=== PATIENT | female | born 1975 | race Caucasian/White ===

== ENCOUNTER 2016-11-13 11:29 | Outpatient (CLI) | payer OTHER | END 2016-11-13 11:30 | disposition home or self-care (01) | DX: M54.5 Low back pain (principal) ==

== ENCOUNTER 2017-04-20 14:46 | Outpatient (CLI) | payer OTHER ==
--- NOTE | 2017-04-20 16:11 | MRI Report ---
EXAM: MRI LUMBAR SPINE WITHOUT CONTRAST EXAM DATE: 04/20/2017 03:18 PM. CLINICAL HISTORY: LOWER BACK PAIN. COMPARISON: Lumbar radiograph 11/13/2016. TECHNIQUE: Multiplanar, multisequence T1-weighted and fluid-sensitive sequences of the lumbar spine f rom T12 to S1 without contrast. Other: None. FINDINGS: Spinal Cord: The conus terminates at T12-L1. No signal abnormality in the visualized spinal cord. Alignment: Normal. No scoliosis or spondylolisthesis. Bone Marrow: Five [id number] lumbar vertebral bodies are assumed. There is mild endplate degener ative change, Schmorl's node formation, mild loss of disk height and slight disk desiccation seen at T11-T12, T12-L1, L1-L2, and L2-L3. There is mild to moderate endplate degenerative change, mild to mo derate loss of disk, disk desiccation seen at L3-L4, L4-L5, and L5-S1. No acute fracture. No marrow replacing lesion. There is minimal endplate edema seen at L5-S1 likely d egenerative in nature. Disk Levels/Facets: T12-L1: Unremarkable. L1-L2: Unremarkable. L2-L3: Unremarkable. L3-L4: Small posterior disk bulge, ligamentum flavum thickening, arthritic facet disease, and promine nt dorsal epidural fat. Mild spinal canal stenosis. Minimal bilateral neuroforaminal narrowing. L4-L5: Small central disk protrusion with associated posterior fissure. Ligamenta flava thickening, a rthritic facet disease, prominent dorsal epidural fat. Mild spinal canal stenosis and effacement of t he lateral recesses. Minimal right and mild left neuroforaminal narrowing. L5-S1: Moderate central to right paracentral disk extrusion with associated posterior annular fissure and disk extending inferiorly behind the S1 vertebral body. The extruded disk fragment measures 10 x 13 x 7 mm (cc by TRV by AP). There is bilateral thoracic facet disease. There is effacement of later al recesses with mass effect on the traversing right S1 nerve root. Mild bilateral neural foraminal n arrowing. Musculature: Normal. No edema or fatty atrophy. Other: The visualized pelvic cavity is unremarkable. IMPRESSION: 1. Minimal to mild multilevel degenerative changes. L3-L4: Mild spinal canal stenosis. Minimal bilateral neuroforaminal narrowing. L4-L5: Mild spinal canal stenosis and effacement of the lateral recesses. Minimal right and mild left neuroforaminal narrowing. L5-S1: Moderate central to right paracentral disk extrusion with associated posterior annular fissure . Effacement of lateral recesses with mass effect on the traversing right S1 nerve root. Mild bilater al neural foraminal narrowing. Comment: The following findings are so common in adults without low back pain that while we report th eir presence, they must be interpreted with caution and in the context of the clinical situation. (Re jose Morgan et al, Spine 2001) Prevalence of findings in patients without low back pain: Disk degeneration (any evidence): 92% Disk desiccation/T2 signal loss: 83% Disk height loss: 56% Disk bulge: 64% Disk protrusion: 32% Annular tear/high intensity zone: 38% [facility] Referring Provider Line: [phone] SITE ID: [id number]
== END 2017-04-20 14:47 | disposition home or self-care (01) ==
LOC: DI 14:46
PROVIDERS: ATTEND Family Medicine
DX: M51.27 Other intervertebral disc displacement, lumbosacral region (principal); M51.36 Other intervertebral disc degeneration, lumbar region; M51.34 Other intervertebral disc degeneration, thoracic region; M51.26 Other intervertebral disc displacement, lumbar region; M47.896 Other spondylosis, lumbar region
CPT/HCPCS: 72148

== ENCOUNTER 2017-10-07 08:00 | Outpatient (CLI) | payer OTHER ==
[2017-10-08 13:16] LABS: BILIRUBIN,URINE NEGATIVE (NEGATIVE); GLUCOSE, URINE (UA) NEGATIVE (NEGATIVE); KETONES,URINE (UA) NEGATIVE (NEGATIVE); LEUKOCYTE ESTERASE, URINE NEGATIVE (NEGATIVE); NITRITE,URINE NEGATIVE (NEGATIVE); OCCULT BLOOD,URINE NEGATIVE (NEGATIVE); PROTEIN,URINE NEGATIVE (NEGATIVE); UROBILINOGEN,URINE 0.2 (NORMAL) E.U./dL (NORMAL)
[2017-10-08 13:21] LABS: BACTERIA,URINE Rare /HPF (None Seen); CLARITY,URINE CLEAR (CLEAR); RBC,URINE 0-5 /HPF (0-5); SQUAMOUS EPITHELIAL CELL,UR RARE Squamous (<= Few)
== END 2017-10-07 23:59 | disposition home or self-care (01) ==
LOC: LAB.R 08:00
PROVIDERS: ATTEND Nurse Practitioner Family
DX: R30.0 Dysuria (principal)
CPT/HCPCS: 81001; 87086

== ENCOUNTER 2017-10-20 08:00 | Outpatient (CLI) | payer OTHER | END 2017-10-20 08:01 | disposition home or self-care (01) | LOC: LAB.R 08:00 | PROVIDERS: ATTEND Nurse Practitioner Family | DX: R30.0 Dysuria (principal) | CPT/HCPCS: 87070 ==

== ENCOUNTER 2018-04-06 12:20 | Outpatient (CLI) | payer OTHER | END 2018-04-06 12:21 | disposition home or self-care (01) | LOC: LAB 12:20 | PROVIDERS: ATTEND Obstetrics & Gynecology | DX: N95.1 Menopausal and female climacteric states (principal); Z11.3 Encounter for screening for infections with a predominantly sexual mode of transmission | CPT/HCPCS: 36415; 83001 ==

== ENCOUNTER 2018-05-19 14:54 | Outpatient (CLI) | payer OTHER ==
--- NOTE | 2018-05-20 10:30 | Mammography Report ---
Reason: ENCNTR SCREEN MAMMOGRAM FOR MALIGNANT NEOPLASM OF Procedure Date: 05/19/2018 Accession Number: [id number] / [id number] Procedure: LIYAH - Screening Mammo Dig Bilat CPT Code: FULL RESULT: EXAM: Screening Mammo Dig Bilat DATE: 05/19/2018 3:45 PM CLINICAL HISTORY: Routine screening TECHNIQUE: Bilateral CC and MLO views were obtained. COMPARISON: 01/18/2016 and 12/03/2012 FINDINGS: The breast tissue is extremely dense. No significant interval change. No suspicious masses, clustered microcalcifications, or regions of architectural distortion are identified. IMPRESSION: Negative examination RECOMMENDATION: Routine annual screening unless otherwise clinically indicated. BIRADS CATEGORY 1: Negative STANDARD QUALIFYING STATEMENTS: 1. This examination was reviewed with the aid of Computer-Aided Detection (CAD). 2. A negative or benign imaging report should not delay biopsy if clinically suspicious findings are present. Consider surgical consultation if warrented. More than 5% of cancers are not identified by imaging. 3. Dense breasts may obscure an underlying neoplasm.
== END 2018-05-19 14:55 | disposition home or self-care (01) ==
LOC: DI 14:54
PROVIDERS: ATTEND Obstetrics & Gynecology
DX: Z12.31 Encounter for screening mammogram for malignant neoplasm of breast (principal)
CPT/HCPCS: 77067

== ENCOUNTER 2019-02-08 10:50 | Outpatient (CLI) | payer OTHER ==
[2019-02-08 17:38] LABS: BASOPHILS % (AUTO) 0.7 %; EOSINOPHILS # (AUTO) 0.1 10^3/uL (0.0-0.7); EOSINOPHILS % (AUTO) 1.6 %; HGB - HEMOGLOBIN 13.6 g/dL (12.0-16.0); LYMPHOCYTES # (AUTO) 2.4 10^3/uL (1.5-3.5); LYMPHOCYTES % (AUTO) 39.7 %; MEAN CORPUSCULAR HEMOGLOBIN 31.6 pg (27.0-31.0); MEAN CORPUSCULAR HGB CONC 32.9 g/dL (32.0-36.0); MEAN CORPUSCULAR VOLUME 96.3 fL (81.0-99.0); MEAN PLATELET VOLUME 11.1 fL (7.9-10.8); MONOCYTES # (AUTO) 0.5 10^3/uL (0.0-1.0); MONOCYTES % (AUTO) 7.4 %; NEUTROPHILS # (AUTO) 3.1 10^3/uL (1.5-6.6); NEUTROPHILS % (AUTO) 50.4 %; PLT - PLATELET COUNT 229 10^3/uL (130-450); RED CELL DISTRIBUTION WIDTH 11.9 % (12.0-15.0); WHITE BLOOD COUNT 6.1 x10^3/uL (4.8-10.8)
[2019-02-08 17:55] LABS: ALBUMIN 4.4 g/dL (3.2-5.5); ALBUMIN/GLOBULIN RATIO 1.4 (1.0-2.2); BILIRUBIN,TOTAL 0.8 mg/dL (0.2-1.0); CALCIUM 9.1 mg/dL (8.5-10.3); CREATININE 0.5 mg/dL (0.4-1.0); TOTAL PROTEIN 7.5 g/dL (6.7-8.2)
[2019-02-10 20:01] LABS: ANA SCREEN POSITIVE (NEGATIVE)
== END 2019-02-08 10:51 | disposition home or self-care (01) ==
LOC: LAB.S 10:50
PROVIDERS: ATTEND Registered Nurse
DX: Z00.00 Encounter for general adult medical examination without abnormal findings (principal); M54.5 Low back pain
CPT/HCPCS: 36415; 80053; 84443; 85025; 86038

== ENCOUNTER 2019-05-25 14:30 | Outpatient (CLI) | payer OTHER ==
--- NOTE | 2019-05-27 11:35 | Mammography Report ---
Reason: SCREENING MAMMO Procedure Date: 05/25/2019 Accession Number: [id number] / [id number] Procedure: LIYAH - Screening Mammo w/Fredi CPT Code: Final Report FULL RESULT: EXAM: Screening Mammo w/Fredi DATE: 05/25/2019 3:01 PM CLINICAL HISTORY: Routine screening TECHNIQUE: (B) - Bilateral CC and MLO views were obtained. COMPARISON: 05/19/2018, 01/18/2016, 12/03/2012 PARENCHYMAL PATTERN: (VD) - The breasts demonstrate extremely dense parenchyma bilaterally, limiting the sensitivity of mammography. FINDINGS: No significant interval change. There are no suspicious masses, calcifications, or areas of distortion. IMPRESSION: Negative examination. BI-RADS category 1. RECOMMENDATION: (ANNUAL) - Recommend routine annual screening mammography. BI-RADS CATEGORY: (1) - Negative. STANDARD QUALIFYING STATEMENTS: 1. This examination was not reviewed with the aid of Computer-Aided Detection (CAD). 2. A negative or benign imaging report should not preclude biopsy if clinically suspicious findings are present. 3. Dense breasts may obscure an underlying neoplasm. 4. This examination was reviewed with the aid of 3D breast imaging (tomosynthesis).
== END 2019-05-25 14:31 | disposition home or self-care (01) ==
LOC: DI 14:30
DX: Z12.31 Encounter for screening mammogram for malignant neoplasm of breast (principal)
CPT/HCPCS: 77063; 77067

== ENCOUNTER 2019-11-21 05:27 | Emergency (ER) | payer MEDICAID, OTHER ==
--- NOTE | 2019-11-21 05:33 | ED Physician Documentation ---
History of Present Illness - Stated complaint Stated Complaint: AB PX - History obtained from History obtained from: Patient (The patient is a 44-year-old female who presents with a chief complaint of left-sided abdominal pain she reports it started yesterday and it started off in her left flank and is now radiating around to the front she reports that the pain comes and goes without dysuria or hematuria or flank pain she has an IUD in place she reports she is otherwise healthy.She denies any pelvic pain or vaginal bleeding her last menstrual period was 2 weeks ago.) Review of Systems Constitutional: reports: Reviewed and negative Eyes: reports: Reviewed and negative Ears: reports: Reviewed and negative Nose: reports: Reviewed and negative Throat: reports: Reviewed and negative Cardiac: reports: Reviewed and negative Respiratory: reports: Reviewed and negative GI: reports: Abdominal Pain, Nausea, Other (left sided flank pain) : reports: Reviewed and negative Skin: reports: Reviewed and negative Musculoskeletal: reports: Reviewed and negative Neurologic: reports: Reviewed and negative Psychiatric: reports: Reviewed and negative Endocrine: reports: Reviewed and negative Immunocompromised: reports: Reviewed and negative PD PAST MEDICAL HISTORY - Present Medications Home Medications: Ambulatory Orders Medication Instructions Recorded Confirmed Hydrocodone/Acetaminophen [[place] 1 each PO Q4HR PRN #14 tablet 11/21/19 5-325 Tablet] Naproxen 250 mg PO 11/21/19 Ondansetron Odt [Zofran Odt] 4 mg TL Q6H PRN #10 tablet 11/21/19 - Allergies Allergies/Adverse Reactions: Allergies Allergy/AdvReac Type Severity Reaction Status Date / Time No Known Drug Allergies Allergy Verified 11/21/19 05:37 PD ED PE NORMAL - Vitals Vital signs reviewed: Yes - General General: Alert and oriented X 3, No acute distress, Well developed/nourished - HEENT HEENT: Atraumatic, PERRL, Moist mucous membranes - Neck Neck: Supple, no meningeal sign - Cardiac Cardiac: RRR, No murmur, Strong equal pulses - Respiratory Respiratory: No respiratory distress, Clear bilaterally - Abdomen Abdomen: Normal bowel sounds, Soft, Non distended, No organomegaly, Other (Positive for left-sided CVA tenderness and left lower quadrant abdominal discomfort no midline abdominal pulsatile mass) - Back Back: No spinal TTP, Other (Positive for left-sided CVA tenderness) - Derm Derm: Warm and dry - Extremities Extremities: No deformity - Neuro Neuro: Alert and oriented X 3, 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, No motor deficit, No sensory deficit, Normal speech - Psych Psych: Normal mood, Normal affect Results - Vitals Vitals: Vital Signs - 24 hr 11/21/19 11/21/19 05:35 06:25 Temperature 36.8 C Heart Rate 83 63 Respiratory 18 15 Rate Blood Pressure 136/83 H 105/76 O2 Saturation 99 98 Oxygen O2 Source Nasal cannula - Labs Labs: Laboratory Tests 11/21/19 11/21/19 11/21/19 05:43 05:45 05:45 WBC 9.3 RBC 4.09 L Hgb 12.9 Hct 38.5 MCV 94.1 MCH 31.5 H MCHC 33.5 RDW 11.6 L Plt Count 247 MPV 10.4 Neut # (Auto) 5.7 Lymph # (Auto) 2.7 [place] # (Auto) 0.7 Eos # (Auto) 0.2 Baso # (Auto) 0.1 Absolute Nucleated RBC 0.00 Nucleated RBC % 0.0 PT INR APTT Sodium 137 Potassium 3.6 Chloride 105 Carbon Dioxide 22 Anion Gap 10.0 BUN 20 Creatinine 0.6 Estimated GFR (MDRD) 108 Glucose 113 H Lactic Acid Calcium 8.7 Total Bilirubin 0.5 AST 29 ALT 29 Alkaline Phosphatase 35 L Total Protein 7.6 Albumin 4.5 Globulin 3.1 Albumin/Globulin Ratio 1.5 Lipase 31 Urine Color YELLOW Urine Clarity SL. CLOUDY Urine pH 8.5 H Ur Specific [place] 1.015 Urine Protein NEGATIVE Urine Glucose (UA) NEGATIVE Urine Ketones 15 H Urine Occult Blood LARGE H Urine Nitrite NEGATIVE Urine Bilirubin NEGATIVE Urine Urobilinogen 0.2 (NORMAL) Ur Leukocyte Esterase NEGATIVE Urine RBC 6-10 H Urine WBC 0-3 Ur Squamous Epith Cells MOD Squamous H Amorphous Sediment Moderate Urine Bacteria Rare Ur Microscopic Review INDICATED Urine Culture Comments NOT INDICATED Urine HCG, Qual NEGATIVE 11/21/19 11/21/19 05:50 05:50 WBC RBC Hgb Hct MCV MCH MCHC RDW Plt Count MPV Neut # (Auto) Lymph # (Auto) [place] # (Auto) Eos # (Auto) Baso # (Auto) Absolute Nucleated RBC Nucleated RBC % PT 11.4 INR 1.0 APTT 26.1 Sodium Potassium Chloride Carbon Dioxide Anion Gap BUN Creatinine Estimated GFR (MDRD) Glucose Lactic Acid 1.4 Calcium Total Bilirubin AST ALT Alkaline Phosphatase Total Protein Albumin Globulin Albumin/Globulin Ratio Lipase Urine Color Urine Clarity Urine pH Ur Specific [place] Urine Protein Urine Glucose (UA) Urine Ketones Urine Occult Blood Urine Nitrite Urine Bilirubin Urine Urobilinogen Ur Leukocyte Esterase Urine RBC Urine WBC Ur Squamous Epith Cells Amorphous Sediment Urine Bacteria Ur Microscopic Review Urine Culture Comments Urine HCG, Qual PD MEDICAL DECISION MAKING - ED course Complexity details: re-evaluated patient (06:50 pain free, work up shows kidney stone at left UVJ, no fever, no signs of infection, patient updated, pain controlled able to void, will follow up with pcp as needed or return to ed with any concerns.), considered differential (Differential diagnosis includes nephrolithiasis, ovarian torsion, diverticulitis history and exam are more consistent with nephrolithiasis urinalysis CBC, BMP LFTs and lipase ordered we will get a CT scan of the abdomen pelvis without contrast and reevaluate this patient.Also provide IV fluid bolus IV antiemetics and the analgesics.), d/w patient Departure - Departure Disposition: 01 Home, Self Care Clinical Impression: Kidney stone Condition: Stable Instructions: Kidney Stones Follow-Up: Caitlin Galdamez ARNP [Primary Care Provider] - Tomorrow Prescriptions: Hydrocodone/Acetaminophen [[place] 5-325 Tablet] 1 each PO Q4HR PRN #14 tablet PRN Reason: Pain Ondansetron Odt [Zofran Odt] 4 mg TL Q6H PRN #10 tablet PRN Reason: Nausea / Vomiting
[2019-11-21 05:48] LABS: BASOPHILS # (AUTO) 0.1 10^3/uL (0.0-0.1); EOSINOPHILS # (AUTO) 0.2 10^3/uL (0.0-0.7); EOSINOPHILS % (AUTO) 1.6 %; HGB - HEMOGLOBIN 12.9 g/dL (12.0-16.0); LYMPHOCYTES # (AUTO) 2.7 10^3/uL (1.5-3.5); LYMPHOCYTES % (AUTO) 28.9 %; MEAN CORPUSCULAR HEMOGLOBIN 31.5 pg (27.0-31.0); MEAN CORPUSCULAR HGB CONC 33.5 g/dL (32.0-36.0); MEAN CORPUSCULAR VOLUME 94.1 fL (81.0-99.0); MEAN PLATELET VOLUME 10.4 fL (7.9-10.8); MONOCYTES # (AUTO) 0.7 10^3/uL (0.0-1.0); NEUTROPHILS # (AUTO) 5.7 10^3/uL (1.5-6.6); NEUTROPHILS % (AUTO) 61.2 %; PLT - PLATELET COUNT 247 10^3/uL (130-450); RED BLOOD COUNT 4.09 10^6/uL (4.20-5.40); RED CELL DISTRIBUTION WIDTH 11.6 % (12.0-15.0); WHITE BLOOD COUNT 9.3 x10^3/uL (4.8-10.8)
[2019-11-21] MEDS: SODIUM CHLORIDE 0.9% 1,000 ML IV ONE (05:48)
[2019-11-21] MEDS: ONDANSETRON 4 MG/2 ML VIAL IVP STA (05:50)
[2019-11-21] MEDS: HYDROmorphone 1 MG/ML SYRINGE IVP STA (05:50)
[2019-11-21 05:51] LABS: BILIRUBIN,URINE NEGATIVE (NEGATIVE); GLUCOSE, URINE (UA) NEGATIVE (NEGATIVE); KETONES,URINE (UA) 15 mg/dL (NEGATIVE); LEUKOCYTE ESTERASE, URINE NEGATIVE (NEGATIVE); NITRITE,URINE NEGATIVE (NEGATIVE); OCCULT BLOOD,URINE LARGE (NEGATIVE); PH,URINE 8.5 PH (5.0-7.5); PROTEIN,URINE NEGATIVE (NEGATIVE); UROBILINOGEN,URINE 0.2 (NORMAL) E.U./dL (NORMAL)
[2019-11-21 05:54] LABS: CLARITY,URINE SL. CLOUDY (CLEAR); HCG UR QUAL NEGATIVE
[2019-11-21 05:59] LABS: SQUAMOUS EPITHELIAL CELL,UR MOD Squamous (<= Few)
[2019-11-21 06:00] LABS: AMORPHOUS SEDIMENT,UR Moderate /LPF; BACTERIA,URINE Rare /HPF (None Seen)
[2019-11-21 06:02] LABS: ALBUMIN 4.5 g/dL (3.2-5.5); ALBUMIN/GLOBULIN RATIO 1.5 (1.0-2.2); BILIRUBIN,TOTAL 0.5 mg/dL (0.2-1.0); CALCIUM 8.7 mg/dL (8.5-10.3); CREATININE 0.6 mg/dL (0.4-1.0); TOTAL PROTEIN 7.6 g/dL (6.7-8.2)
[2019-11-21 06:07] LABS: PT - PROTHROMBIN TIME 11.4 secs (9.9-12.6)
[2019-11-21 06:14] LABS: PARTIAL THROMBOPLASTIN TIME 26.1 secs (24.9-33.3)
--- NOTE | 2019-11-21 06:45 | CT Report ---
Reason: left flank pain Procedure Date: 11/21/2019 Accession Number: [id number] / [id number] Procedure: CT - Abdomen/Pelvis WO CPT Code: Final Report FULL RESULT: EXAM: CT ABDOMEN AND PELVIS (CT KUB) EXAM DATE: 11/21/2019 06:05 AM. CLINICAL HISTORY: Left flank pain. COMPARISONS: None. TECHNIQUE: Routine axial helical CT imaging was performed through the abdomen and pelvis without IV contrast. Reconstructions: Coronal and sagittal. In accordance with CT protocol optimization, one or more of the following dose reduction techniques were utilized for this exam: automated exposure control, adjustment of mA and/or KV based on patient size, or use of iterative reconstructive technique. FINDINGS: Lung bases are clear. The visible heart is normal in size. No pericardial effusion is seen. The unenhanced liver is within normal limits. Calcified gallstones are seen in the gallbladder. There is no gallbladder wall thickening or pericholecystic fluid. No biliary dilatation is seen. The unenhanced spleen, pancreas, and adrenal glands are within normal limits. A 4 mm calculus is seen at the left ureterovesicular junction. There is mild left hydroureteronephrosis and mild periureteral edema. No additional left renal calculi are seen. No right renal or ureteral calculi are seen, and there is no right hydronephrosis. No bladder wall thickening is seen. The intestines are normal in caliber and position. The appendix is normal. A large amount of retained stool is seen in the descending and rectosigmoid colon. Air-fluid levels are seen in the ascending and transverse colon. There is no evidence of bowel obstruction or inflammation. No free intraperitoneal air or ascites is seen. Subcentimeter mesenteric lymph nodes are seen without evidence of lymphadenopathy. The unenhanced abdominal aorta is normal in caliber and position. An intrauterine device is seen within the uterus. The uterus and ovaries are normal. There is no free pelvic fluid. Degenerative disk disease is seen at L5-S1. There are no suspicious lytic or blastic lesions. IMPRESSION: 1. 4 mm calculus at the left ureterovesicular junction with mild left hydroureteronephrosis and periureteral edema. 2. Cholelithiasis. [facility]
[2019-11-21] MEDS: KETOROLAC 30 MG/ML VIAL IVP STA (07:03)
[2019-11-21 07:09] VITALS: BP 106/64
== END 2019-11-21 07:29 | disposition home or self-care (01) ==
LOC: ED 05:27
DX: N13.2 Hydronephrosis with renal and ureteral calculous obstruction (principal)
CPT/HCPCS: 36415; 74176; 80053; 81001; 81003; 81025; 83605; 83690; 85025; 85610; 85730; 87086; 96361; 96374; 96375; 99283

== ENCOUNTER 2020-07-16 13:22 | Outpatient (CLI) | payer MEDICAID ==
--- NOTE | 2020-07-17 09:54 | Mammography Report ---
BILATERAL DIGITAL SCREENING MAMMOGRAM 3D/2D: 07/16/2020 CLINICAL: Routine screening. Comparison is made to exams dated: 05/25/2019 mammogram, 05/19/2018 mammogram, 01/18/2016 mammogram, 01/18/2016 ultrasound, 12/03/2012 mammogram, and 12/03/2012 ultrasound - [facility]. The tissue of both breasts is extremely dense, which lowers the sensitivity of mammography. No significant masses, calcifications, or other findings are seen in either breast. There has been no significant interval change. IMPRESSION: NEGATIVE There is no mammographic evidence of malignancy. A 1 year screening mammogram is recommended. This exam was interpreted at Station ID: [id number]. NOTE: For mammograms, a report in lay terms will be sent to the patient. Approximately 15% of breast malignancies will not be visualized mammographically. In the management of a palpable breast mass, a negative mammogram must not discourage biopsy of a clinically suspicious lesion. Electronically Signed By: Nazario baker/seun:07/16/2020 16:10:26 ACR BI-RADS Category 1: Negative 3341F PARENCHYMAL PATTERN: (VD) - The breast(s) demonstrate(s) extremely dense parenchyma, limiting the sen sitivity of mammography. BI-RADS CATEGORY: (1) - 1 RECOMMENDATION: (ANNUAL) - Recommend routine annual screening mammography. [id number] 1 year screening LATERALITY: (B)
== END 2020-07-16 13:23 | disposition home or self-care (01) ==
LOC: DI.N 13:22
PROVIDERS: ATTEND Obstetrics & Gynecology
DX: Z12.31 Encounter for screening mammogram for malignant neoplasm of breast (principal)
CPT/HCPCS: 77067

== ENCOUNTER 2021-05-24 08:52 | Outpatient (CLI) | payer OTHER ==
[2021-05-24 15:14] LABS: HCT - HEMATOCRIT 42.3 % (37.0-47.0); HGB - HEMOGLOBIN 13.7 g/dL (12.0-16.0); MEAN CORPUSCULAR HEMOGLOBIN 31.4 pg (27.0-31.0); MEAN CORPUSCULAR HGB CONC 32.4 g/dL (32.0-36.0); MEAN PLATELET VOLUME 11.1 fL (7.9-10.8); RED BLOOD COUNT 4.36 10^6/uL (4.20-5.40); RED CELL DISTRIBUTION WIDTH 11.9 % (12.0-15.0); WHITE BLOOD COUNT 6.4 x10^3/uL (4.8-10.8)
[2021-05-24 16:04] LABS: CRP - C-REACTIVE PROTEIN < 1.0 mg/dL (0-1.0)
[2021-05-24 16:06] LABS: URIC ACID 3.6 mg/dL (2.6-7.2)
[2021-05-24 17:38] LABS: RHEUMATOID FACTOR NEGATIVE (Negative)
[2021-05-28 12:01] LABS: DNA (DS) ANTIBODY 8 IU/mL
[2021-05-28 12:30] LABS: ANA PATTERN Nuclear, Homogeneous; ANA SCREEN POSITIVE (NEGATIVE)
[2021-05-28 15:11] LABS: CYCLIC CITRULL PEPTIDE CCP IGG <16 UNITS
== END 2021-05-24 08:53 | disposition home or self-care (01) ==
LOC: LAB.S 08:52
PROVIDERS: ATTEND Registered Nurse
DX: R21 Rash and other nonspecific skin eruption (principal); M19.90 Unspecified osteoarthritis, unspecified site
CPT/HCPCS: 36415; 84550; 85027; 85651; 86038; 86140; 86200; 86225; 86430

== ENCOUNTER 2021-06-22 08:00 | Outpatient (CLI) | payer OTHER ==
[2021-06-22 15:03] LABS: BILIRUBIN,URINE NEGATIVE (NEGATIVE); GLUCOSE, URINE (UA) NEGATIVE (NEGATIVE); KETONES,URINE (UA) NEGATIVE (NEGATIVE); LEUKOCYTE ESTERASE, URINE NEGATIVE (NEGATIVE); NITRITE,URINE NEGATIVE (NEGATIVE); OCCULT BLOOD,URINE NEGATIVE (NEGATIVE); PROTEIN,URINE NEGATIVE (NEGATIVE); UROBILINOGEN,URINE 0.2 (NORMAL) E.U./dL (NORMAL)
[2021-06-22 15:09] LABS: CLARITY,URINE CLEAR (CLEAR)
[2021-06-22 15:19] LABS: BACTERIA,URINE None Seen /HPF (None Seen); RBC,URINE None Seen /HPF (0-5); SQUAMOUS EPITHELIAL CELL,UR RARE Squamous (<= Few); WBC,URINE 0-3 /HPF (0-5)
== END 2021-06-22 23:59 | disposition home or self-care (01) ==
LOC: LAB.S 08:00
PROVIDERS: ATTEND Emergency Medicine
DX: R30.0 Dysuria (principal)
CPT/HCPCS: 81001; 87086

== ENCOUNTER 2021-06-26 17:00 | Outpatient (CLI) | payer OTHER ==
[2021-06-27 00:50] LABS: BACTERIAL VAGINOSIS DNA NEGATIVE (NEGATIVE); CANDIDA GLABRATA DNA NEGATIVE (NEGATIVE); CANDIDA GROUP DNA NEGATIVE (NEGATIVE); CANDIDA KRUSEI DNA NEGATIVE (NEGATIVE); TRICHOMONAS VAGINALIS DNA NEGATIVE (NEGATIVE)
== END 2021-06-26 23:59 | disposition home or self-care (01) ==
LOC: LAB.S 17:00
PROVIDERS: ATTEND Physician Assistant
DX: R30.0 Dysuria (principal)
CPT/HCPCS: 87086; 87661; 87801

== ENCOUNTER 2021-12-03 10:50 | Outpatient (CLI) | payer OTHER ==
--- NOTE | 2021-12-03 16:06 | Mammography Report ---
BILATERAL DIGITAL SCREENING MAMMOGRAM 3D/2D WITH EXAGGERATED CC: 12/03/2021 CLINICAL: Routine screening. Comparison is made to exams dated: 07/16/2020 mammogram, 05/25/2019 mammogram, and 05/19/2018 mammog [facility]. The tissue of both breasts is extremely dense, which lowers the sensitivity of mammography. No significant masses, calcifications, or other findings are seen in either breast. There has been no significant interval change. IMPRESSION: NEGATIVE There is no mammographic evidence of malignancy. A 1 year screening mammogram is recommended. This exam was interpreted at Station ID: [id number]. NOTE: For mammograms, a report in lay terms will be sent to the patient. Approximately 15% of breast malignancies will not be visualized mammographically. In the management of a palpable breast mass, a negative mammogram must not discourage biopsy of a clinically suspicious lesion. Electronically Signed By: Michelle feliz/seun:12/03/2021 13:03:10 ACR BI-RADS Category 1: Negative 3341F PARENCHYMAL PATTERN: (VD) - The breast(s) demonstrate(s) extremely dense parenchyma, limiting the sen sitivity of mammography. BI-RADS CATEGORY: (1) - 1 RECOMMENDATION: (ANNUAL) - Recommend routine annual screening mammography. [id number] 1 year screening LATERALITY: (B)
== END 2021-12-03 10:51 | disposition home or self-care (01) ==
LOC: DI.S 10:50
PROVIDERS: ATTEND Obstetrics & Gynecology
DX: Z12.31 Encounter for screening mammogram for malignant neoplasm of breast (principal)

== ENCOUNTER 2022-12-04 11:15 | Outpatient (CLI) | payer OTHER | END 2022-12-04 11:16 | disposition home or self-care (01) | LOC: LAB.S 11:15 | PROVIDERS: ATTEND Anesthesiology | DX: E03.9 Hypothyroidism, unspecified (principal); N95.9 Unspecified menopausal and perimenopausal disorder; M25.50 Pain in unspecified joint; G47.9 Sleep disorder, unspecified; R53.83 Other fatigue | CPT/HCPCS: 81599; 82670; 83001; 84403; 84439; 84443; 84481; 86376 ==

== ENCOUNTER 2022-12-15 10:48 | Outpatient (CLI) | payer OTHER ==
--- NOTE | 2022-12-16 11:32 | Mammography Report ---
BILATERAL DIGITAL SCREENING MAMMOGRAM 3D/2D WITH EXAGGERATED CC: 12/15/2022 CLINICAL: Routine screening. Family history of breast cancer. Comparison is made to exams dated: 12/03/2021 mammogram, 05/25/2019 mammogram, 05/19/2018 mammogram, and 07/16/2020 mammogram - [facility]. Both breasts are extremely dense, which lowers the sensitivity of mammography (category d />75% gland ular tissue). No significant masses, calcifications, or other findings are seen in either breast. There has been no significant interval change. IMPRESSION: NEGATIVE There is no mammographic evidence of malignancy. A 1 year screening mammogram is recommended. Based on Tyrer-Cuzick model (a risk assessment model), the patient's lifetime risk is 23.9% and her 1 0 year risk is 5.7%. If a patient has an elevated risk, a more comprehensive evaluation should be con sidered and/or a referral to a genetic counselor. The [place] [employer], [place] [employer], and NCCN Guidelines advise the consideration of Breast MRI as an adjunct to screening mammog yrn in patients whose "Lifetime risk to develop breast cancer" is 20% or higher. This exam was interpreted at Station ID: [id number]. NOTE: For mammograms, a report in lay terms will be sent to the patient. Approximately 15% of breast malignancies will not be visualized mammographically. In the management of a palpable breast mass, a negative mammogram must not discourage biopsy of a clinically suspicious lesion. Electronically Signed By: Nazario baker/seun:12/15/2022 11:29:17 letter sent: No_Letter ACR BI-RADS Category 1: Negative 3341F PARENCHYMAL PATTERN: (VD) - The breast(s) demonstrate(s) extremely dense parenchyma, limiting the sen sitivity of mammography. BI-RADS CATEGORY: (1) - 1 Mammogram [id number] 1 year screening LATERALITY: (B)
== END 2022-12-15 10:49 | disposition home or self-care (01) ==
LOC: DI.S 10:48
PROVIDERS: ATTEND Nurse Practitioner Family
DX: Z12.31 Encounter for screening mammogram for malignant neoplasm of breast (principal); Z80.3 Family history of malignant neoplasm of breast

== ENCOUNTER 2023-03-04 06:28 | Day surgery (SDC) | payer OTHER ==
[2023-03-04] MEDS ORDERED: LACTATED RINGERS 1,000 ML IV ONE (06:34)
[2023-03-04 06:49] VITALS: O2SAT 100
[2023-03-04] MEDS ORDERED: PROPOFOL 500 MG/50 ML 500 MG/50 ML VIAL ONE (07:08)
[2023-03-04] MEDS ORDERED: MIDAZOLAM 2 MG/2 ML VIAL ONE (07:10)
--- NOTE | 2023-03-04 08:01 | ANESTHESIA ---
Pre-Anesthesia VS, & Labs - Diagnosis family history of colon cancer and esophageal cancer - Procedure egd and colonoscopy Vital Signs: Temp Pulse Resp BP Pulse Ox O2 Flow Rate 36.3 C L 51 L 16 101/75 100 03/04/23 06:34 03/04/23 06:34 03/04/23 06:34 03/04/23 06:34 03/04/23 06:34 Height: 5 ft 5 in Weight (kg): 66.8 kg Body Mass Index: 24.5 BMI Classification: Normal - NPO >8 hours - Is Patient ?: Waiver signed Home Medications and Allergies Naproxen 250 mg PO 11/21/19 Allergies/Adverse Reactions: Allergies Allergy/AdvReac Type Severity Reaction Status Date / Time gluten Allergy Unknown Verified 11/22/19 07:49 bees Allergy Unknown Uncoded 11/22/19 07:49 Anes History & Medical History - Anesthetic History Anesthesia Complications: reports: No previous complications - Medical History Cardiovascular: reports: None Pulmonary: reports: None Gastrointestinal: reports: None Urinary: reports: Kidney stones Neuro: reports: None Musculoskeletal: reports: Osteoarthritis, Chronic back pain Endocrine/Autoimmune: reports: None Blood Disorders: reports: None Skin: reports: Psoriasis Smoking Status: Current every day smoker (vapes) Psychosocial: reports: Alcohol, Cannabis History of Cancer?: No Exam General: Alert, Oriented x3, Cooperative, No acute distress Dental: WNL Mouth Openin Fingerbreadth Neck Mobility: Normal Mallampati classification: II Thyromental Distance: 4-6 cm Mental/Cognitive Status: Alert/Oriented X3, Normal for patient Plan Anesthesia Type: General Consent for Procedure(s) Verified and Reviewed: Yes Code Status: Attempt Resuscitation ASA classification: 2-Mild systemic disease Is this case an emergency?: No
[2023-03-04] MEDS ORDERED: LACTATED RINGERS 200 ML IV ONE (08:20)
[2023-03-04 09:13] VITALS: BP 95/57
--- NOTE | 2023-03-04 16:34 | ANESTHESIA POST OP EVALUATION ---
Anesthesia Post Eval - Post Anesthesia Eval Vitals: Last Vital Signs Temp 36.4 C L 03/04/23 09:00 Pulse 49 L 03/04/23 09:00 Resp 18 03/04/23 09:00 BP 95/57 L 03/04/23 09:00 Pulse Ox 100 03/04/23 09:00 O2 Flow Rate CV Function Including HR & BP: Stable Pain Control: Satisfactory Nausea & Vomiting: Negative Mental Status: Baseline Respiratory Status: Airway Patent Hydration Status: Satisfactory Anesthesia Complications: None
== END 2023-03-04 06:29 | disposition home or self-care (01) ==
LOC: SDS 06:28
PROVIDERS: ATTEND Surgery
PROC: 0DJD8ZZ Inspection of Lower Intestinal Tract, Via Natural or Artificial Opening Endoscopic (ICD-10-PCS; principal; 2023-03-04 07:30)
PROC: 0DB48ZX Excision of Esophagogastric Junction, Via Natural or Artificial Opening Endoscopic, Diagnostic (ICD-10-PCS; 2023-03-04 07:30)
DX: Z12.11 Encounter for screening for malignant neoplasm of colon (principal); K44.9 Diaphragmatic hernia without obstruction or gangrene; K22.89 Other specified disease of esophagus; F17.290 Nicotine dependence, other tobacco product, uncomplicated; K21.9 Gastro-esophageal reflux disease without esophagitis; Z80.0 Family history of malignant neoplasm of digestive organs; F41.9 Anxiety disorder, unspecified
CPT/HCPCS: 43239; 45378; J7120; 81025

== ENCOUNTER 2023-12-15 06:30 | Day surgery (SDC) | payer OTHER ==
[~2023-12-15 06:30] MED LIST: ceFAZolin 2 GM VIAL ONE
[2023-12-15] MEDS: LACTATED RINGERS 1,000 ML IV ONE (06:38)
[2023-12-15] MEDS ORDERED: BUPIVACAINE 0.5%-EPI 1:200000 PF 30 ML VIAL ONE (07:01)
--- NOTE | 2023-12-15 07:12 | ANESTHESIA ---
Pre-Anesthesia VS, & Labs - Diagnosis RIGHT FEMORAL HERNIA - Procedure RIGHT FEMORAL HERNIA REPAIR Vital Signs: Temp Pulse Resp BP Pulse Ox O2 Flow Rate 36.5 C 61 15 110/72 100 12/15/23 06:39 12/15/23 06:39 12/15/23 06:39 12/15/23 06:39 12/15/23 06:39 Height: 5 ft 5 in Weight (kg): 61.9 kg Body Mass Index: 22.6 BMI Classification: Normal - NPO >8 hours Last Fluid Intake: 2300 - Is Patient ?: Waiver signed (HAS AN IUD) Home Medications and Allergies Home Medications: Ambulatory Orders No Known Home Medications 12/09/23 No Known Home Medications 12/09/23 Allergies/Adverse Reactions: Allergies Allergy/AdvReac Type Severity Reaction Status Date / Time bees Allergy Unknown Uncoded 12/15/23 06:57 Anes History & Medical History - Anesthetic History Anesthesia Complications: reports: No previous complications Family history of Anesthesia Complications: Denies - Medical History Cardiovascular: reports: None Pulmonary: reports: None Gastrointestinal: reports: None Urinary: reports: Kidney stones Neuro: reports: None Musculoskeletal: reports: Osteoarthritis, Chronic back pain Endocrine/Autoimmune: reports: None Blood Disorders: reports: None Skin: reports: Psoriasis Smoking Status: Former smoker (vapes) Psychosocial: reports: Cannabis - Surgical History General: reports: Colonoscopy Results - EKG Results EKG Comparison: Reviewed EKG Exam General: Alert Dental: WNL Mouth Openin Fingerbreadth Neck Mobility: Normal Mallampati classification: II Thyromental Distance: 4-6 cm Respiratory: Lungs clear Cardiovascular: Regular rate Plan Anesthesia Type: General Consent for Procedure(s) Verified and Reviewed: Yes Code Status: Attempt Resuscitation ASA classification: 2-Mild systemic disease Is this case an emergency?: No
[2023-12-15] MEDS ORDERED: ATROPINE ABBOJECT 1 MG/10 ML SYRINGE IVP PRN (07:14)
[2023-12-15] MEDS ORDERED: METOCLOPRAMIDE 10 MG/2 ML VIAL IVP PRN (07:14)
[2023-12-15] MEDS ORDERED: ONDANSETRON 4 MG/2 ML VIAL IVP PRN ×2 (07:14→08:49)
[2023-12-15] MEDS ORDERED: fentaNYL 100 MCG/2 ML VIAL IVP PRN (07:14)
[2023-12-15] MEDS ORDERED: HYDROmorphone 0.5 MG/0.5 ML SYRINGE IVP PRN ×2 (07:14→08:49)
[2023-12-15] MEDS ORDERED: NALOXONE 0.4 MG/ML VIAL IVP PRN (07:14)
[2023-12-15] MEDS ORDERED: MORPHINE 2 MG/ML CARPUJECT IVP PRN (07:14)
[2023-12-15] MEDS ORDERED: ePHEDrine 50 MG/ML VIAL IVP PRN (07:14)
[2023-12-15] MEDS ORDERED: LIDOCAINE-PF 2% 10 ML AMP SUBQ ONE (07:27)
[2023-12-15] MEDS ORDERED: MIDAZOLAM 2 MG/2 ML VIAL ONE (07:27)
[2023-12-15] MEDS ORDERED: PROPOFOL 200 MG/20 ML VIAL IVP ONE (07:27)
[2023-12-15] MEDS ORDERED: fentaNYL 100 MCG/2 ML VIAL ONE (07:27)
[2023-12-15] MEDS ORDERED: LACTATED RINGERS 1,000 ML IV SCH (08:00)
[2023-12-15] MEDS: BUPIVACAINE 0.5%-EPI 1:200000 PF 30 ML VIAL SUBQ ONE (08:05)
[2023-12-15] MEDS ORDERED: ONDANSETRON 4 MG/2 ML VIAL ONE (08:12)
[2023-12-15] MEDS ORDERED: DEXAMETHASONE 4 MG/ML VIAL ONE (08:12)
[2023-12-15] MEDS ORDERED: KETOROLAC 30 MG/ML VIAL ONE (08:26)
[2023-12-15] MEDS: LACTATED RINGERS 500 ML IV ONE ×2 (08:37→09:05)
--- NOTE | 2023-12-15 08:41 | OPERATIVE REPORT ---
Operative Report - General Procedure Date: 12/15/23 Planned Procedure: RIGHT femoral herniorrhaphy Pre-Op Diagnosis: RIGHT femoral hernia Procedure Performed: RIGHT femoral herniorrhaphy with mesh Post Op Diagnosis: RIGHT femoral hernia - Procedure Note Primary Surgeon: Eliecer Townsend MD Anesthesia Provider: Octaviano Fields CRNA Anesthesia Technique: General LMA, Local (30 mL of half percent Marcaine with epinephrine) IV Fluids (mL): 500 Drain/Tube Type: Other (None.) Indications: Symptomatic RIGHT femoral hernia Complications: None. - Other Other Information/Narrative: After verbal and written informed consent was obtained detailing the operation, the alternatives the operation including no operation, risks of infection, bleeding requiring transfusion with its risks, nerve injury, and and after I met with the patient confirming the surgery and the site of surgery, the patient was brought to the operative suite and placed supine on the operating table. Great care was taken to avoid pressure points to prevent pressure necrosis or nerve injury. Monitoring devices were applied along with TEDs and pneumatic compression stockings (to prevent DVT). The patient received preoperative antibiotics for surgical prophylaxis. Octaviano Fields CRNA sedated and anesthetized the patient for the entire procedure. The patient was prepped and draped in the usual sterile manner. With the patient draped my initials were clearly visible. A "time in" then confirmed that the patient was identified with 3 identifiers (name, date, and medical record number), the history and physical was updated and in the chart, the signed consent confirming the procedure was in the chart, the patient was in the correct position, the aforementioned prophylactic measures were in place or given, we had the correct personnel and equipment to complete the procedure and that anesthesia and the surgical team were given an opportunity to express any concerns. With the agreement of everyone in the room we proceeded with the operation. A standard femoral incision was made in the inguinal crease and dissection was carried down to the hernia sac using a combination of Metzenbaum scissors and Bovie electrocautery. The incarcerated femoral hernia sac was noted to be coming from just medial to the right femoral vein. There were extensive adhesions to the adjoining tissues that had to be taken down with meticulous dissection. The opening was just smaller than the tip of my little finger yet the hernia sac was just slightly larger than a ping pong ball. Extensive dissection had to be taken to free up all these adhesions and the opening itself was dilated up so that it would admit the tip of my little finger. Once this was done I was able to reduce the hernia into the abdomen. A piece of Bard polypropylene mesh (see nursing report for details on the mesh) was rolled into a cigar shape and 2-0 PDS was sutured through this to keep this in the shape. This was then secured in the opening with interrupted 2-0 PDS thus closing the femoral defect. The subcutaneous tissues were approximated using a simple 3-0 Vicryl suture. The entire area both deep and superficial was injected using half percent Marcaine with epinephrine. A total of 30 mL of half percent Marcaine with epinephrine was used. The skin incision was approximated with 4-0 Monocryl in a subcuticular fashion. The skin was cleaned of its prep and Dermabond was applied. At this point a timeout was performed that confirmed that all counts were correct x2, the procedure that was performed, the blood loss, the IV fluids administered, the patient's condition, and any concerns of the operating team had. Having tolerated the procedure well, the patient was taken recovery room in good and stable condition. The plan is for outpatient discharge when the patient is adequately recovered. CPT 17093 (repair incarcerated femoral hernia) This document was created in part using voice recognition technology. Because of the inherent limitations of the system, occasional same sounding word substitutions and grammatical errors do occur and persist despite proofreading. Please read this document for content.
[2023-12-15] MEDS ORDERED: HYDROcod/ACETAM 5/325 MG TABLET ONE (09:16)
[2023-12-15] MEDS: HYDROcod/ACETAM 5/325 MG TABLET PO PRN (09:17)
[2023-12-15 09:58] VITALS: BP 109/44; O2SAT 97
--- NOTE | 2023-12-15 15:36 | ANESTHESIA POST OP EVALUATION ---
Anesthesia Post Eval - Post Anesthesia Eval Vitals: Last Vital Signs Temp 36.0 C L 12/15/23 09:30 Pulse 45 L 12/15/23 09:30 Resp 16 12/15/23 09:30 BP 109/44 L 12/15/23 09:30 Pulse Ox 97 12/15/23 09:30 O2 Flow Rate CV Function Including HR & BP: Stable Pain Control: Satisfactory Nausea & Vomiting: Negative Mental Status: Baseline Respiratory Status: Airway Patent Hydration Status: Satisfactory Anesthesia Complications: None
== END 2023-12-15 06:31 | disposition home or self-care (01) ==
LOC: SDS 06:30
PROVIDERS: ATTEND Surgery
DX: K41.30 Unilateral femoral hernia, with obstruction, without gangrene, not specified as recurrent (principal); Z87.891 Personal history of nicotine dependence
CPT/HCPCS: 49553; A9270; C1781; J7120

== ENCOUNTER 2024-03-21 14:01 | Outpatient (CLI) | payer OTHER ==
--- NOTE | 2024-03-22 07:58 | Mammography Report ---
BILATERAL DIGITAL SCREENING MAMMOGRAM 3D/2D WITH EXAGGERATED CC: 03/21/2024 CLINICAL: Routine screening. Family history of breast cancer. Comparison is made to exams dated: 12/03/2021 mammogram, 12/15/2022 mammogram, and [facility] Both breasts are extremely dense, which lowers the sensitivity of mammography (category d />75% gland ular tissue). No significant masses, calcifications, or other findings are seen in either breast. There has been no significant interval change. IMPRESSION: NEGATIVE There is no mammographic evidence of malignancy. A 1 year screening mammogram is recommended. Based on Tyrer-Cuzick model (a risk assessment model), the patient's lifetime risk is 23.8% and her 1 0 year risk is 6.0%. If a patient has an elevated risk, a more comprehensive evaluation should be con sidered and/or a referral to a genetic counselor. The [employer] [place] [employer], [employer] [place] [employer], and NCCN Guidelines advise the consideration of Breast MRI as an adjunct to screening mammog yrn in patients whose "Lifetime risk to develop breast cancer" is 20% or higher. This exam was interpreted at Station ID: [id number]. NOTE: For mammograms, a report in lay terms will be sent to the patient. Approximately 15% of breast malignancies will not be visualized mammographically. In the management of a palpable breast mass, a negative mammogram must not discourage biopsy of a clinically suspicious lesion. Electronically Signed By: Tres [email or web address]:03/21/2024 15:12:20 letter sent: No_Letter ACR BI-RADS Category 1: Negative 3341F PARENCHYMAL PATTERN: (VD) - The breast(s) demonstrate(s) extremely dense parenchyma, limiting the sen sitivity of mammography. BI-RADS CATEGORY: (1) - 1 RECOMMENDATION: (ANNUAL) - Recommend routine annual screening mammography. [id number] 1 year screening LATERALITY: (B)
== END 2024-03-21 14:02 | disposition home or self-care (01) ==
LOC: DI.S 14:01
DX: Z12.31 Encounter for screening mammogram for malignant neoplasm of breast (principal); Z80.3 Family history of malignant neoplasm of breast; R92.343 Mammographic extreme density, bilateral breasts